=== PATIENT | male | born 1965 | race Caucasian/White ===

== ENCOUNTER → 2017-11-14 | Outpatient (CLI) | payer OTHER ==
--- NOTE | 2017-11-14 11:36 | DIAGNOSTIC IMAGING REPORT ---
CT OF THE CHEST WITHOUT IV CONTRAST CLINICAL HISTORY: Fall November 04, 2017 with left-sided rib fractures. Left pleural effusion with positive influenza B test. COMPARISON STUDY: No previous studies for comparison. CT DOSE: 953.92 mGy.cm TECHNIQUE: Axial images of the chest were obtained without IV contrast. Images were reviewed in the axial, sagittal, and coronal planes. IV contrast was not administered for this examination. A dose lowering technique was utilized adhering to the principles of ALARA. FINDINGS: No pneumothorax is present. There is a small left pleural effusion. The left pleural fluid is low attenuation. Note is made of acute appearing minimally displaced fractures of the posterior left seventh and ninth ribs with a nondisplaced posterior left eighth rib fracture. No enlarged axillary, mediastinal or hilar lymph nodes are present. Borderline cardiomegaly is noted. There is no pericardial effusion. Lower lobe bronchial thickening is noted with multifocal mucus plugging. Right lower lobe groundglass/tree-in-bud opacities favor an infectious process. Left lower lobe opacity could reflect atelectasis or an infectious process. There are no suspicious pulmonary nodules. No acute thoracic spine fractures identified. Visualized portions of the upper abdomen demonstrate numerous water attenuation hepatic lesions which likely reflect cysts. A 1.3 cm intermediate attenuation medial segment lesion is indeterminate. Suspected old sternal fracture is noted. IMPRESSION: 1. Acute appearing minimally displaced fractures of the posterior left seventh and ninth ribs with a nondisplaced left eighth rib fracture. No pneumothorax. Small left pleural effusion. Left pleural fluid is low attenuation. 2. Right lower lobe groundglass and tree-in-bud opacities suggest an infectious process such as bronchiolitis/developing bronchopneumonia. Left lower lobe groundglass opacity could reflect atelectasis or an infectious process. Bilateral lower lobe bronchial wall thickening. 3. Indeterminate but statistically benign 1.3 cm medial segment hepatic lesion. Multiple additional suspected hepatic cysts. Electronically signed by: Ruben Mcknight M.D. 11/14/2017 11:35 AM Dictated Date/Time: 11/14/2017 11:23 AM
== END | disposition home or self-care (01) ==
LOC: C.CTS 10:58
PROVIDERS: ATTEND Physician Assistant Medical
DX: J10.1 Influenza due to other identified influenza virus with other respiratory manifestations (principal); J90 Pleural effusion, not elsewhere classified; S22.42XA Multiple fractures of ribs, left side, initial encounter for closed fracture; R91.8 Other nonspecific abnormal finding of lung field; K76.9 Liver disease, unspecified; W19.XXXA Unspecified fall, initial encounter